=== PATIENT | female | born 1965 | race Caucasian/White ===

== ENCOUNTER 2019-05-12 07:07 | Outpatient (CLI) | payer BC ==
--- NOTE | 2019-05-12 09:49 | ULT ---
ABDOMINAL ULTRASOUND: INDICATIONS: Abdominal pain. Renal failure. Question intra-abdominal hematoma. TECHNIQUE: Abdominal and pelvic evaluation was performed. FINDINGS: The patient is post hysterectomy and bilateral salpingo-oophorectomy. The gallbladder has a normal appearance. No evidence of gallstones. The common duct is of normal juve siddharth. The visualized liver and spleen are unremarkable. The visualized aorta and IVC are unremarkable. The pancreas is partially obscured but unremarkable as visualized. Right kidney is unremarkable. Bridgette ges of the left kidney show a single echogenic foci, measuring 0.5 cm, possibly representing a calcul us. No hydronephrosis. The urinary bladder is imaged and is partially distended. The urinary bladder appears unremarkable as visualized. No significant free fluid. No evidence of intra-abdominal hematoma identified. IMPRESSION: Unremarkable abdominal ultrasound. POS: OFF
--- NOTE | 2019-05-12 09:56 | ULT ---
PELVIC ULTRASOUND: Date: 05/12/19 Transabdominal exam of pelvis performed. INDICATION: Abdominal pain. Assess for hematoma. FINDINGS/IMPRESSION: Patient is post hysterectomy and bilateral salpingo-oophorectomy. No free fluid. No mass lesion. No e vidence of hematoma seen in subcutaneous tissues or pelvis. Urinary bladder is contracted on this exa m and is not adequately evaluated. Urinary bladder was mildly distended on the abdominal exam and appeared unremarkable as noted on that study. See separate abdominal ultrasound report. POS: OFF
== END 2019-05-12 07:08 | disposition home or self-care (01) ==
LOC: BICULT 07:07
PROVIDERS: ATTEND Family Medicine
DX: N17.9 Acute kidney failure, unspecified (principal); N32.89 Other specified disorders of bladder; Z90.710 Acquired absence of both cervix and uterus; Z90.722 Acquired absence of ovaries, bilateral
CPT/HCPCS: 76700; 76856

== ENCOUNTER 2019-06-02 07:43 | Outpatient (CLI) | payer BC ==
[2019-06-02 17:37] LABS: Anion Gap 14 mmol/L (10-20); BUN (Urea Nitrogen) 10 mg/dL (9.8-20.1); Calc. Creatinine Clearance 0 mL/min (70-130); Calcium 9.1 mg/dL (7.8-10.44); Carbon Dioxide 21 mmol/L (22-29); Chloride 107 mmol/L (98-107); Estimated GFR-MDRD 43; Glucose 163 mg/dL (70-105); Potassium 3.9 mmol/L (3.5-5.1); Sodium 138 mmol/L (136-145)
== END 2019-06-02 07:44 | disposition home or self-care (01) ==
LOC: LABBT 07:43
PROVIDERS: ATTEND Orthopaedic Surgery
DX: Z01.818 Encounter for other preprocedural examination (principal); S83.241A Other tear of medial meniscus, current injury, right knee, initial encounter
CPT/HCPCS: 80048; 93005; 93010

== ENCOUNTER 2019-06-04 11:38 | Day surgery (SDC) | payer BC ==
[2019-06-02 16:12] VITALS: BMI 28.8
[2019-06-04] MEDS ORDERED: Midazolam HCl 2 mg/2 ml Vial ONE (12:38)
[2019-06-04] MEDS ORDERED: Bupivacaine HCl 0.5%/Epinephrine 1:200,000/PF 30 ml Vial ONE (12:58)
[2019-06-04] MEDS ORDERED: Lidocaine 1% (PF) 30 ML VIAL ONE (12:59)
[2019-06-04] MEDS ORDERED: Fentanyl 100 MCG/2 ML VIAL ONE ×3 (13:31→14:41)
[2019-06-04] MEDS ORDERED: Promethazine HCl 25 MG/ML VIAL ONE (14:42)
[2019-06-04] MEDS ORDERED: Acetaminophen/Codeine 30-300mg Tablet ONE (15:58)
--- NOTE | 2019-06-04 16:36 | OP ---
DATE OF PROCEDURE: 06/04/2019 PREOPERATIVE DIAGNOSIS: Right knee medial meniscus tear. POSTOPERATIVE DIAGNOSES: 1. Right knee medial meniscus tear. 2. Right knee primary osteoarthritis. PROCEDURES PERFORMED: 1. Right knee examination under anesthesia with diagnostic arthroscopy. 2. Right knee arthroscopy with partial medial meniscectomy. ANESTHESIA: General. ESTIMATED BLOOD LOSS: 10 mL. DRAINS: None. SPECIMENS: None. COMPLICATIONS: None. TOURNIQUET TIME: 22 minutes at 250 mmHg. OPERATIVE INDICATIONS: The patient is a pleasant 53-year-old female who had persistent right medial knee pain. We had extensively trialed conservative management consistent with activity modification, oral antiinflammatories as well as steroid injection. Although she had some moderate articular cartilage thinning on MRI, there was found to be displaced flap tear of medial meniscus thought to be contributing to her recurrent swelling and mechanical symptoms of right knee. Risks and benefits of surgical intervention were reviewed in detail and the patient elected to proceed. Appropriate written consent was obtained. ARTHROSCOPIC FINDINGS: 1. Patellofemoral compartment: There was grade 1 and localized grade 2 articular cartilage thinning at medial facet and lateral facet patella with central grade 1 thinning of trochlea. No loose bodies. 2. Medial compartment: There was grade 4 articular cartilage loss throughout medial femoral condyle weightbearing portion. No significant osteophytes. Grade 3 and 4 articular cartilage thinning of medial tibial plateau. Medial meniscus had undersurface flap tear at midbody as well as degenerative oblique tear at posterior horn. Both of these were unstable to probing. 3. Lateral compartment: Largely intact articular cartilage, there was a localized loose full thickness flap that was unstable to probing that was generally debrided. It measured 2 x 4 mm. Lateral meniscus appeared largely normal with mild fraying at posterior horn. Root attachments intact. 4. Central compartment: Intact ACL and PCL. 5. Examination under anesthesia: The patient had mild palpable effusion. Two quadrant patella required. Passive motion from 0 to 130 degrees. Stable varus and valgus stress at 0 and 30 degrees. Negative Titus, negative Pivot shift, negative posterior drawer. DESCRIPTION OF PROCEDURE: The patient's right lower extremity was marked in the preoperative holding area and she was transported to the operative suite in a supine position where general anesthesia was induced. She received a preop dose of IV antibiotics for surgical prophylaxis. A thigh high tourniquet was applied with thigh leg anaya and contralateral limb was well padded off the side of the bed. Right lower extremity was prepped and draped in usual sterile fashion for this type of procedure. Surgical time-out was performed correctly identifying the patient, procedure, and laterality. After application of Esmarch dressing, the tourniquet was insufflated. A standard anterolateral arthroscopic portal was established in an outside-in fashion followed by medial working portal under spinal needle localization. Diagnostic arthroscopy was then performed with the above noted findings. First, we turned our attention towards lateral femoral condyle where displaced full thickness articular cartilage flap was probed. This was gently debrided down to stable shoulders with arthroscopic shaver. Final cartilage lesion size was 2 x 4 mm. Mild fraying of lateral meniscus was gently debrided; however, meniscus largely was stable to probing. The medial meniscus had unstable undersurface flap tear at midbody as well as degenerative oblique tears at posterior horn. Both of these were unstable to probing and they were debrided back to stable edges utilizing motorized shaver from both medial and lateral portals. Upon completion, all meniscal tissue was stable to probing and no further culturing was present. All remaining fluid was then removed from the knee. Portal sites were closed with 3-0 Monocryl and Steri-Strips. A 30 mL of 0.5% Marcaine with epinephrine were then injected intra-articularly. 4x4's, ABD pad, and Noé wrap were then applied. Tourniquet and general anesthesia were removed. The patient tolerated the procedure well and was transported to recovery in good condition. POSTOPERATIVE PLAN: The patient is discharged with Tylenol 3, Toradol, Zofran. Weightbearing as tolerated and range of motion as tolerated in right lower extremity. Follow up in 1 week. Job ID: [id number]
== END 2019-06-04 16:30 | disposition home or self-care (01) ==
LOC: SDC 11:38
PROVIDERS: ATTEND Orthopaedic Surgery
PROC: 0SBC4ZZ Excision of Right Knee Joint, Percutaneous Endoscopic Approach (ICD-10-PCS; principal; 2019-06-04)
DX: M23.321 Other meniscus derangements, posterior horn of medial meniscus, right knee (principal); M17.11 Unilateral primary osteoarthritis, right knee; F41.9 Anxiety disorder, unspecified; I10 Essential (primary) hypertension; M19.90 Unspecified osteoarthritis, unspecified site; G43.909 Migraine, unspecified, not intractable, without status migrainosus; Z79.899 Other long term (current) drug therapy; Z88.1 Allergy status to other antibiotic agents; Z88.8 Allergy status to other drugs, medicaments and biological substances; Z98.1 Arthrodesis status
CPT/HCPCS: 80048; 93005; J0131; J0670; J0690; J2001; J2250; J2550; J3010

== ENCOUNTER 2019-08-19 14:56 | Outpatient (CLI) | payer BC ==
--- NOTE | 2019-08-23 14:43 | MMO ---
Bilateral MAMMO Bilat Screen [facility]. CLINICAL HISTORY: Patient is 53 years old and is seen for screening. The patient has no family history of breast cancer. The patient has no personal history of cancer. The patient has a history of left Excisional Biopsy in 1999 - BENIGN and bilateral Implants - benign - IMPLANTS REPLACED 06/2018. VIEWS: The views performed were: bilateral craniocaudal; bilateral mediolateral oblique; bilateral exaggerated craniocaudal with tomosynthesis; and bilateral Implant displaced with tomosynthesis. FILMS COMPARED: The present examination has been compared to prior imaging studies performed at [facility] on 09/03/2006, 06/24/2008, 06/29/2015 and 08/15/2016. This study has been interpreted with the assistance of computer-aided detection. MAMMOGRAM FINDINGS: The breasts are heterogeneously dense, which could obscure a lesion on mammography. There are no suspicious masses, suspicious calcifications, or new areas of architectural distortion. IMPRESSION: THERE IS NO MAMMOGRAPHIC EVIDENCE OF MALIGNANCY. A ROUTINE FOLLOW-UP MAMMOGRAM IN 1 YEAR IS RECOMMENDED. THE RESULTS OF THIS EXAM WERE SENT TO THE PATIENT. ACR BI-RADS Category 1 - Negative MAMMOGRAPHY NOTE: 1. A negative mammogram report should not delay a biopsy if a dominant of clinically suspicious mass is present. 2. Approximately 10% to 15% of breast cancers are not detected by mammography. 3. Adenosis and dense breasts may obscure an underlying neoplasm. Reported by: JORGITO GARZON MD Electonically Signed: [id number]
== END 2019-08-19 14:57 | disposition home or self-care (01) ==
LOC: BICMAMMO 14:56
PROVIDERS: ATTEND Family Medicine
DX: Z12.31 Encounter for screening mammogram for malignant neoplasm of breast (principal); Z91.89 Other specified personal risk factors, not elsewhere classified; Z98.82 Breast implant status
CPT/HCPCS: 77063; 77067

== ENCOUNTER 2020-01-10 | Outpatient (CLI) | payer BC | END 2020-01-10 09:35 | disposition home or self-care (01) | DX: I10 Essential (primary) hypertension (principal); K76.0 Fatty (change of) liver, not elsewhere classified; R16.1 Splenomegaly, not elsewhere classified ==

== ENCOUNTER 2021-03-27 15:02 | Outpatient (CLI) | payer BC | END 2021-03-27 15:03 | disposition home or self-care (01) | LOC: BICRAD 15:02 | PROVIDERS: ATTEND Family Medicine | DX: R05 Cough (principal) | CPT/HCPCS: 71046 ==

== ENCOUNTER 2022-01-10 12:44 | Outpatient (CLI) | payer BC | END 2022-01-10 12:45 | disposition home or self-care (01) | LOC: BICRAD 12:44 | PROVIDERS: ATTEND Family Medicine | DX: R05.9 Cough, unspecified (principal) | CPT/HCPCS: 71046 ==

== ENCOUNTER 2024-08-05 10:51 | Outpatient (CLI) | payer MEDICARE | END 2024-08-05 10:52 | disposition home or self-care (01) | LOC: ULT 10:51 | PROVIDERS: ATTEND Physical Medicine & Rehabilitation | DX: R74.01 Elevation of levels of liver transaminase levels (principal); K80.20 Calculus of gallbladder without cholecystitis without obstruction; K76.0 Fatty (change of) liver, not elsewhere classified | CPT/HCPCS: 76705 ==